=== PATIENT | male | born 1970 | race Caucasian/White ===

== ENCOUNTER 2017-03-07 08:20 | Emergency (ER) | payer OTHER ==
--- NOTE | 2017-03-07 08:50 | Emergency Department Record ---
History of Present Illness - General Chief complaint: Male Urogenital Problem Stated complaint: LUMP ON TESTICLE Time Seen by Provider: 03/07/17 08:31 Source: Patient Mode of Arrival: Ambulatory - History of Present Illness Initial comments: The patient is here due to having mild pain over his L testicle for one year with a slowly increasing lump present. He denies any dysuria, AP, nausea, or hematuria. Now he would like it checked out. He also has been having bilateral hip pain for about 5 years. He also is concerned about that. He has been ambulating normally with no leg weakness, fevers, chills, or any recent trauma. The patient does have a PCP but has declined to see him for any of these problems. MD Complaint: Testicle pain Onset/Timin -: Year(s) Location: Left testicle Severity: Mild Severity scale (1-10): 3 Quality: Aching Consistency: Intermittent Improves with: None Worsens with: None Reports: Denies other symptoms - Related Data Previous Rx's Medication Instructions Recorded Naproxen [Naprosyn] 500 mg PO BID #14 tablet. 03/07/17 Allergies Allergy/AdvReac Type Severity Reaction Status Date / Time No Known Drug Allergies Allergy Verified 03/07/17 08:30 Travel Screening - Travel/Exposure Within Last 30 Days Have you traveled within the last 30 days?: No Review of Systems Constitutional: Denies: Chills, Fever Eyes: Denies: Eye discharge ENT: Denies: Congestion Respiratory: Denies: Cough, Dyspnea Past Medical History - SOCIAL HISTORY Smoking Status: Current every day smoker Alcohol Use: None Drug Use: None - RESPIRATORY Hx Respiratory Disorders: No - CARDIOVASCULAR Hx Cardio Disorders: No - NEURO Hx Neuro Disorders: No - GI Hx GI Disorders: No - Hx Genitourinary Disorders: No - ENDOCRINE Hx Endocrine Disorders: No - MUSCULOSKELETAL Hx Musculoskeletal Disorders: No - PSYCH Hx Psych Problems: No - HEMATOLOGY/ONCOLOGY Hx Hematology/Oncology Disorders: No Family Medical History Any Significant Family History?: No Physical Exam - General General Appearance: Alert, Oriented x3, Cooperative, No acute distress - Head Head exam: Atraumatic, Normocephalic, Normal inspection - Eye Eye exam: Normal appearance, PERRL - Respiratory Respiratory exam: Normal lung sounds bilaterally. negative: Respiratory distress - Cardiovascular Cardiovascular Exam: Regular rate, Normal rhythm, Normal heart sounds - GI/Abdominal GI/Abdominal exam: Soft, Normal bowel sounds. negative: Distended, Guarding, Rebound, Tenderness - exam: Normal inspection, Testicular tenderness (There is very mild L testicle tenderness with a very small < 1 cm lump present over the medial epididymis. There is no testicle tenderness or edema.). negative: Circumcision , Scrotal swelling - Extremities Extremities exam: Normal inspection, Full ROM (There is full ROM of the bilateral hips with no problems or pain. The patient is able to walk with no difficulty.), Normal capillary refill. negative: Joint swelling, Tenderness - Back Back exam: Reports: Normal inspection, Full ROM. Denies: Muscle spasm, Rash noted, Tenderness Course Vital Signs 03/07/17 08:27 Temperature 97.5 F L Pulse Rate 66 Respiratory 18 Rate Blood Pressure 147/89 Pulse Ox 99 - Reevaluation(s) Reevaluation #1: I did discuss the US and xray results with the patient and the need for F/U with Dr. Rodriges in the [facility] for the testicle issue and also Dr. Suresh for the chronic hip issues. He is to take the Naprosyn as directed and see both physicians as directed. 03/07/17 10:58 Medical Decision Making - Data Complexity MDM Data: Labs Ordered and/or Reviewed (UA: Neg.), X-Ray Ordered and/or Reviewed - Radiology Data Radiology results: Report reviewed (Testicle US: Poss cyst L testicle. No definite mass or tumor. Bilateral Hips: Neg.) Disposition Disposition: Discharge Clinical Impression: Testicle lump Disposition: Home, Self-Care Condition: (1) Good Instructions: Testicle Pain (ED) Additional Instructions: Please take the Naprosyn for pain and see Dr. Rodriges in the [facility]ty [facility] in 1-2 weeks. Please try to use good scrotal support. Please also see your PCP Dr. Suresh for recheck of the hip issues this month. Return to the ER for any problems. Prescriptions: Naproxen [Naprosyn] 500 mg PO BID #14 tablet. Referrals: [facility] [Provider Group] Forms: Patient Portal Access Time of Disposition: 10:55 Quality - Quality Measures Quality Measures: N/A - Blood Pressure Screening View Details: Yes Does Patient Have Any of the Following: No Blood Pressure Classification: Pre-Hypertensive BP Reading Systolic Measurement: 147 Diastolic Measurement: 89 Screening for High Blood Pressure: < Pre-Hypertensive BP, F/U Documented > [ [id number]] Pre-Hypertensive Follow-up Interventions: Referral to alternative/primary care provider.
[2017-03-07 08:56] LABS: URINE APPEARANCE CLEAR; URINE BILIRUBIN NEGATIVE (NEGATIVE); URINE BLOOD NEGATIVE (NEGATIVE); URINE COLOR YELLOW; URINE GLUCOSE (UA) NEGATIVE (NEGATIVE); URINE KETONE NEGATIVE (NEGATIVE); URINE LEUKOCYTE ESTERASE NEGATIVE (NEGATIVE); URINE NITRITE NEGATIVE (NEGATIVE); URINE PROTEIN NEGATIVE (NEGATIVE); URINE UROBILINOGEN 0.2 E.U./dL (0.20 - 1.00)
--- NOTE | 2017-03-07 15:23 | ULTRASOUND REPORT ---
EXAM: EMERGENCY SCROTAL ULTRASOUND HISTORY: LEFT TESTICLE MASS FOR ONE YEAR. TECHNIQUE: Real-time ultrasound examination of the scrotal content was performed bilaterally including Doppler with color flow and spectral analysis. Comparison: No prior scrotal ultrasound with which to compare. FINDINGS: The right testicle is identified measuring approximately 2.3 x 3.4 x 3.6 cm in size. No definite intratesticular mass seen on the right. Arterial and venous flow evident in the right testicle with color flow and spectral analysis Doppler. There is some mild diffuse prominence of the epididymis on the right. A small hydrocele is also present on the right containing some internal echoes presumably some form of debris. The left testicle is identified measuring approximately 2.3 x 3.1 x 3.3 cm in size. No definite intratesticular mass seen on the left. Arterial and venous flow evident in the left testicle with color flow and spectral analysis Doppler. There does appear to be a very tiny cyst along the periphery of the left testicle only about 4 mm in size. Small hydrocele on the left also containing some apparent debris similar to that seen on the right. Prominence of the epididymis on the left as well, more so than that seen on the right. Small epididymal cyst or spermatocele on the head of the epididymis as well measuring less than 1 cm in size. IMPRESSION: 1. APPEARANCE CONSISTENT WITH A TINY EPIDIDYMAL CYST OR SPERMATOCELE IN THE HEAD OF THE EPIDIDYMIS ON THE LEFT. 2. THERE IS ALSO AN APPROXIMATELY 4 MM APPARENT CYST ALONG THE PERIPHERY OF THE LEFT TESTICLE. ELSEWHERE THE LEFT TESTICLE ITSELF APPEARS NEGATIVE. IF THERE ARE NO PRIOR SCROTAL ULTRASOUNDS WITH WHICH TO COMPARE, FOLLOW-UP SCROTAL ULTRASOUND IN A FEW MONTHS MIGHT BE USEFUL TO CONFIRM A STABLE APPEARANCE OF THIS PRESUMED SMALL PERIPHERAL TESTICULAR CYST. 3. BILATERAL SMALL HYDROCELES CONTAINING SOME DEBRIS BILATERALLY. 4. THE EPIDIDYMIDES APPEAR PROMINENT BILATERALLY MORE SO ON THE LEFT. CLINICAL CORRELATION TO THE POSSIBILITY OF EPIDIDYMITIS SUGGESTED. JOB NUMBER: [id number] MTDD
--- NOTE | 2017-03-08 07:24 | RADIOLOGY REPORT ---
EXAM: BILATERAL HIPS HISTORY: CHRONIC PAIN LEFT HIP WITH SOME ON THE RIGHT WELL. TECHNIQUE: AP view of the pelvis, AP and lateral views of both hips were obtained. Comparison: None. FINDINGS: The hips appear essentially negative bilaterally. Very tiny chronic appearing calcification adjacent to the lateral border of the left acetabulum superiorly. The hip joints appear maintained bilaterally. No fracture or dislocation on either side. No destructive lesion identified. 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 IMPRESSION: THE HIPS APPEAR ESSENTIALLY NEGATIVE BILATERALLY WITH A TINY CALCIFICATION ADJACENT TO THE LATERAL MARGIN OF THE LEFT ACETABULUM SUPERIORLY. JOB NUMBER: [id number] MTDD
== END 2017-03-07 10:55 | disposition home or self-care (01) ==
LOC: ER 08:20
DX: N50.89 Other specified disorders of the male genital organs (principal); G89.29 Other chronic pain; M25.552 Pain in left hip; M25.551 Pain in right hip
CPT/HCPCS: 73521; 76870; 81003; 99283; 99284